=== PATIENT | female | born 1980 | race Two or more races ===

== ENCOUNTER 2022-08-13 19:21 | Emergency (ER) | payer OTHER ==
[~2022-08-13] VITALS: Ht 154.9 cm; Wt 84.1 kg
[2022-08-13 19:29] VITALS: BP 115/62
[2022-08-13] MEDS ORDERED: KETOROLAC TROMETHAMINE 30 MG/ML VIAL IM ONE (23:45)
[2022-08-13] MEDS ORDERED: ACETAMINOPHEN 500 MG TABLET PO ONE (23:45)
== END 2022-08-14 00:26 | disposition home or self-care (01) ==
LOC: EMS 19:26
DX: M54.32 Sciatica, left side (principal); M54.31 Sciatica, right side
CPT/HCPCS: 99283; 96372; J1885